=== PATIENT | female | born 1990 | race Caucasian/White ===

== ENCOUNTER 2017-05-23 20:10 | Emergency (ER) | payer BC, MEDICAID ==
[2017-05-23 22:40] VITALS: BP 121/75
--- NOTE | 2017-05-23 23:24 | EDM.PDOC ---
[id number]: TELMA SI PAIN Time Seen by Provider: 05/23/17 23:00 Source of Information: Reports: Patient History Limitations: Reports: No Limitations - History of Present Illness INITIAL COMMENTS - FREE TEXT/NARRATIVE: 27-year-old female was had abdominal pain all day. Started out as generalized but has worked its way to the right lower quadrant, painful to walk and flex the right leg. She does have a history of ovarian cysts, is currently nursing her child. No fevers or chills, no bowel symptoms such as diarrhea or constipation. Onset: Today, Gradual Duration: Day(s): (Pain has been present all day) Right Middle Abdomen Pain Score (Numeric/FACES): 7 - Related Data Allergies Allergy/AdvReac Type Severity Reaction Status Date / Time No Known Allergies Allergy Verified 08/07/14 14:51 Home Meds: Home Meds Acetaminophen/oxyCODONE [Percocet 325-5 MG] 1 - 2 tab PO Q4H PRN #30 tablet [Rx] Ketorolac [Toradol] 10 mg PO Q6H #10 tablet 08/11/14 [Rx] Past Medical History [employer] History: Reports: - Past Surgical History Female Surgical History: Reports: Section Musculoskeletal Surgical History: Reports: Other (See Below) Other Musculoskeletal Surgeries/Procedures:: tail bone surgery Social & Family History - Tobacco Use Smoking Status *Q: Never Smoker Second Hand Smoke Exposure: No - Caffeine Use Caffeine Use: Reports: Coffee - Alcohol Use Days Per Week of Alcohol Use: 0 - Recreational Drug Use Recreational Drug Use: No ED ROS GENERAL - Review of Systems Review Of Systems: See Below Constitutional: Reports: Malaise, Decreased Appetite. Denies: Fever, Chills Respiratory: Denies: Shortness of Breath Cardiovascular: Denies: Chest Pain GI/Abdominal: Reports: Abdominal Pain, Nausea. Denies: Vomiting : Reports: No Symptoms Skin: Reports: No Symptoms Neurological: Reports: No Symptoms ED EXAM, GI/ABD - Physical Exam Exam: See Below Exam Limited By: No Limitations General Appearance: Alert, No Apparent Distress (Patient is not distressed but does appear uncomfortable) Eyes: Bilateral: Normal Appearance Respiratory/Chest: No Respiratory Distress, Lungs Clear Cardiovascular: Regular Rate, Rhythm GI/Abdominal: Soft, Tenderness, Guarding (Some guarding in the right lower quadrant, no significant rebound) Neurological: Alert, Oriented Course - Vital Signs Last Recorded V/S: Last Vital Signs Temp 99.0 F 05/23/17 22:38 Pulse 57 L 05/23/17 22:38 Resp 18 05/23/17 22:38 BP 121/75 05/23/17 22:38 Pulse Ox 100 05/23/17 22:38 - Orders/Labs/Meds Orders: Active Orders 24 hr Category Date Time Status Abdomen Pelvis wo Cont [CT] Stat Exams 05/24/17 00:00 Taken Labs: Laboratory Tests 05/23/17 05/23/17 05/23/17 Range/Units 23:21 23:21 23:21 WBC 7.3 (4.5-11.0) K/uL RBC 4.51 (3.30-5.50) M/uL Hgb 13.1 D (12.0-15.0) g/dL Hct 39.4 (36.0-48.0) % MCV 87 (80-98) fL MCH 29 (27-31) pg MCHC 33 (32-36) % Plt Count 240 (150-400) K/uL Neut % (Auto) 64 (36-66) % Lymph % (Auto) 24 (24-44) % [place] % (Auto) 10 H (2-6) % Eos % (Auto) 2 (2-4) % Baso % (Auto) 0 (0-1) % Sodium 137 L (140-148) mmol/L Potassium 3.9 (3.6-5.2) mmol/L Chloride 105 (100-108) mmol/L Carbon Dioxide 24 (21-32) mmol/L Anion Gap 11.9 (5.0-14.0) mmol/L BUN 14 D (7-18) mg/dL Creatinine 0.6 (0.6-1.0) mg/dL Est Cr Clr Drug Dosing 112.38 mL/min Estimated GFR (MDRD) > 60 (>60) Glucose 103 (74-106) mg/dL Calcium 8.5 (8.5-10.1) mg/dL Urine Color Yellow Urine Appearance Clear Urine pH 7.0 (4.5-8.0) Ur Specific Center 1.010 (1.008-1.030) Urine Protein Negative (NEGATIVE) mg/dL Urine Glucose (UA) Normal (NEGATIVE) mg/dL Urine Ketones Negative (NEGATIVE) mg/dL Urine Occult Blood Moderate (NEGATIVE) Urine Nitrite Negative (NEGATIVE) Urine Bilirubin Negative (NEGATIVE) Urine Urobilinogen Normal (NORMAL) mg/dL Ur Leukocyte Esterase Negative (NEGATIVE) Urine RBC 10-20 H (0-5) Urine WBC 0-5 (0-5) Ur Epithelial Cells Few Amorphous Sediment Few Urine Bacteria Not seen Urine Mucus Few Urine HCG, Qual 05/23/17 Range/Units 23:28 WBC (4.5-11.0) K/uL RBC (3.30-5.50) M/uL Hgb (12.0-15.0) g/dL Hct (36.0-48.0) % MCV (80-98) fL MCH (27-31) pg MCHC (32-36) % Plt Count (150-400) K/uL Neut % (Auto) (36-66) % Lymph % (Auto) (24-44) % [place] % (Auto) (2-6) % Eos % (Auto) (2-4) % Baso % (Auto) (0-1) % Sodium (140-148) mmol/L Potassium (3.6-5.2) mmol/L Chloride (100-108) mmol/L Carbon Dioxide (21-32) mmol/L Anion Gap (5.0-14.0) mmol/L BUN (7-18) mg/dL Creatinine (0.6-1.0) mg/dL Est Cr Clr Drug Dosing mL/min Estimated GFR (MDRD) (>60) Glucose (74-106) mg/dL Calcium (8.5-10.1) mg/dL Urine Color Urine Appearance Urine pH (4.5-8.0) Ur Specific Center (1.008-1.030) Urine Protein (NEGATIVE) mg/dL Urine Glucose (UA) (NEGATIVE) mg/dL Urine Ketones (NEGATIVE) mg/dL Urine Occult Blood (NEGATIVE) Urine Nitrite (NEGATIVE) Urine Bilirubin (NEGATIVE) Urine Urobilinogen (NORMAL) mg/dL Ur Leukocyte Esterase (NEGATIVE) Urine RBC (0-5) Urine WBC (0-5) Ur Epithelial Cells Amorphous Sediment Urine Bacteria Urine Mucus Urine HCG, Qual Negative Meds: Medications Discontinued Medications Generic Name Dose Route Start Last Admin Trade Name Freq PRN Reason Stop Dose Admin Tamsulosin HCl 0.4 mg 05/24/17 01:53 05/24/17 02:12 Flomax PO 05/24/17 01:54 0.4 mg ONETIME ONE Administration - Re-Assessments/Exams Free Text/Narrative Re-Assessment/Exam: 05/23/17 23:23 CBC, CMP, UA and urine were obtained. Patient declined pain medication initially. 05/24/17 01:59 Urine was negative, UA was positive for 10-20 RBCs per high-power field. CBC and CMP were unremarkable so a CT scan was obtained without contrast and revealed a right ureteral 6 mm stone in the distal ureter with right hydronephrosis. No other abnormality was seen. Patient was given 10 ketorolac doses to take over the next 2-3 days along with 10 hydrocodone, one oral Flomax and a copy of the CT scan was given to the patient. She should recheck on Tuesday or if not improving satisfactorily, or return sooner if worsening. Departure - Departure Time of Disposition: 02:13 Disposition: Home, Self-Care 01 Condition: Good Clinical Impression: Renal colic on right side, Right nephrolithiasis - Discharge Information Instructions: Renal Colic, [id number], Kidney Stones, [id number] Referrals: PCP,None [Primary Care Provider] - Forms: ED Department Discharge Care Plan Goals: Take ketorolac over the next 2-3 days as prescribed and add stronger pain medication if needed. Recheck on Tuesday or if not improving satisfactorily or return sooner if worsening or concerns. - My Orders Last 24 Hours: My Active Orders 05/24/17 00:00 Abdomen Pelvis wo Cont [CT] Stat - Assessment/Plan Last 24 Hours: My Active Orders 05/24/17 00:00 Abdomen Pelvis wo Cont [CT] Stat
[2017-05-24] MEDS ORDERED: Tamsulosin 0.4 MG Cap.ER PO ONE (01:53)
== END 2017-05-24 02:13 | disposition home or self-care (01) ==
LOC: JP.ED 20:10
DX: N13.2 Hydronephrosis with renal and ureteral calculous obstruction (principal); Z79.899 Other long term (current) drug therapy; R53.81 Other malaise; R63.0 Anorexia
CPT/HCPCS: 36415; 74176; 80048; 81001; 81025; 85025; 99284; A9270